=== PATIENT | male | born 1980 | race Hispanic/Latino ===

== ENCOUNTER 2021-06-25 20:37 | Emergency (ER) | payer OTHER ==
[2021-06-25 22:23] VITALS: BP 122/68
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
[2021-06-26] MEDS: ACETAMINOPHEN 500 MG TAB PO ONE ×2 (00:18→00:38)
[2021-06-26] MEDS: CYCLOBENZAPRINE 10 MG TAB PO ONE ×2 (00:19→00:37)
[2021-06-26] MEDS: IBUPROFEN 600 MG TAB PO ONE ×2 (00:19→00:38)
== END 2021-06-26 00:40 | disposition home or self-care (01) ==
LOC: ED 20:37
DX: S63.92XA Sprain of unspecified part of left wrist and hand, initial encounter (principal); S20.219A Contusion of unspecified front wall of thorax, initial encounter; S70.12XA Contusion of left thigh, initial encounter; M62.838 Other muscle spasm; Z79.899 Other long term (current) drug therapy; V49.49XA Driver injured in collision with other motor vehicles in traffic accident, initial encounter; Y92.410 Unspecified street and highway as the place of occurrence of the external cause; Y93.89 Activity, other specified; Y99.8 Other external cause status
CPT/HCPCS: 71046